=== PATIENT | male | born 1995 | race Caucasian/White ===

== ENCOUNTER 2019-08-06 14:42 | Emergency (ER) | payer OTHER, SELFPAY ==
--- NOTE | 2019-08-06 15:26 | HMH.EDUTC ---
[facility] [place] Disposition Clinical Impression: Right otitis media Qualifiers: Otitis media type: suppurative Chronicity: acute Recurrence: non-recurrent Spontaneous tympanic membrane rupture: without spontaneous rupture Qualified Code(s): H66.001 - Acute suppurative otitis media without spontaneous rupture of ear drum, right ear Disposition: Home, Self-Care Condition on Discharge: Good Instructions: Middle Ear Infection Additional Instructions: Drink plenty of fluids. Take tylenol or ibuprofen for pain or fever. Take the medications as directed. Follow up with your regular doctor. GO TO THE ER FOR ANY WORSENING SYMPTOMS Prescriptions: predniSONE [Deltasone 10mg tablet] 10 mg PO BID 3 Days #6 tab Transmission Status: Received by [id number] Azithromycin [Z-Abisai 250mg Tab*] 250 mg PO UD DOSE PK #6 tab Transmission Status: Received by [facility] Referrals: Audra Arias PA [Primary Care Provider] - Forms: Work/School Release Time of Disposition: 15:46 Medical Decision Making - Medical Records Medical records reviewed: No: I reviewed the patient's medical records. - Gerald Inquiry Pt receiving controlled substance: No Vital Signs: 08/06/19 15:41 08/06/19 15:47 Temperature 98.0 F 98.0 F Temperature Source Oral Pulse Rate 65 Pulse Rate [Left Brachial] 65 Respiratory Rate 20 20 Blood Pressure 124/78 Blood Pressure [Left Arm] 124/78 Blood Pressure Mean [Left Arm] 93 Blood Pressure Source [Left Arm] Automatic Cuff Blood Pressure Position [Left Arm] Sitting 02 Sat by Pulse Oximetry 98 Oxygen Delivery Method Room Air [facility] [place] HPI - General Stated complaint: ear infection Time Seen by Provider: 08/06/19 15:26 - History of Present Illness Provider Complaint: He c/o right ear pain for the past 2 days. He state that he gets ear infections frequently and he feels like he has one now. - Related Data Previous Rx's Medication Instructions Recorded Azithromycin [Z-Abisai 250mg Tab*] 250 mg PO UD DOSE PK #6 tab 08/06/19 predniSONE [Deltasone 10mg tablet] 10 mg PO BID 3 Days #6 tab 08/06/19 Allergies Allergy/AdvReac Type Severity Reaction Status Date / Time Penicillins [PENICILLINS] Allergy Unknown Verified 11/08/17 08:05 [facility] History - Hepatitis A Screen Attestation statement:: This patient has been screened for Hepatitis A risk factors. I have reviewed the patient's past medical history: Yes Laterality Cases: Bilateral: Tonsillectomy - Social History Smoking Status: Current every day smoker Tobacco Type: cigarettes # Packs/Day (cigarettes): 1 Alcohol Intake: never Occupational Status: other Family Hx:: No significant family history ROS Obtained: Yes All systems reviewed & no additional complaints - Constitutional Constitutional: Denies chills, Denies fever(s) - Eyes Eyes: Denies eye discharge - ENT Ears, Nose, Mouth, and Throat: Reports as per HPI - Cardiovascular Cardiovascular: Denies chest pain - Respiratory Respiratory: No chest congestion, No cough, No dyspnea, No coughing up blood, No stridor, No wheezing Physical Exam - General General appearance: alert, in no apparent distress - Head Head exam: atraumatic, normocephalic, normal inspection - Eye Eye exam: Present: normal appearance, PERRL, EOMI - ENT ENT exam: Present: mucous membranes moist, normal external ear exam - Expanded ENT Exam TM/Canal exam: Bilateral TM: erythema, bulging, effusion Nose exam: Absent: sinus tenderness Mouth exam: Present: normal external inspection Teeth exam: Present: normal inspection Throat exam: Present: tonsillar erythema. Absent: tonsillomegaly, tonsillar exudate, R peritonsillar mass, L peritonsillar mass - Neck Neck exam: Present: normal inspection, full ROM, trachea midline. Absent: meningismus, lymphadenopathy - Chest Chest inspection: Present: normal inspection, symmetric chest wall rise. Absent: tenderness - Res
[2019-08-06 15:41] VITALS: BP 124/78; PULSE 65; RESP 20; TEMP 36.7; O2SAT 98; BMI 20.4
[2019-08-06 15:47] VITALS: BP 124/78; PULSE 65; RESP 20; TEMP 36.7; O2SAT 98
== END 2019-08-06 15:52 | disposition home or self-care (01) ==
PROVIDERS: Emergency Provider Nurse Practitioner Family; PCP Physician Assistant
DX: H66.001 Acute suppurative otitis media without spontaneous rupture of ear drum, right ear (principal); F17.210 Nicotine dependence, cigarettes, uncomplicated; Z90.09 Acquired absence of other part of head and neck
CPT/HCPCS: 99201

== ENCOUNTER → 2019-08-31 13:56 | Outpatient (CLI) | payer OTHER, SELFPAY | PROVIDERS: Visit Provider Nurse Practitioner | DX: Z02.1 Encounter for pre-employment examination (principal) ==

== ENCOUNTER 2020-09-01 19:23 | Emergency (ER) | payer OTHER, SELFPAY ==
[2020-09-01 19:51] VITALS: BP 130/85; PULSE 87; RESP 20; TEMP 36.6; O2SAT 99; BMI 18.6
--- NOTE | 2020-09-01 19:52 | ECG_ITS ---
APPROVED REPORT Exam: Resting ECG HR:78 bpm ECG Measurements Heart Rate 78 AXES ID 146 P 75 QRSd 98 QRS 92 QT 358 T 66 QTc 408 Conclusion Normal sinus rhythm Rightward axis Incomplete right bundle branch block Borderline ECG Electronically signed by : Garry Sy, 09/02/2020 18:51:39
[2020-09-01 20:01] VITALS: BP 115/75; BP 118/75; BP 129/81; PULSE 77; PULSE 89
--- NOTE | 2020-09-01 20:04 | HMH.EDUTC ---
[facility] [place] Disposition Clinical Impression: Syncope, near, Dehydration Fatigue Qualifiers: Fatigue type: unspecified Qualified Code(s): R53.83 - Other fatigue Disposition: Home, Self-Care Condition on Discharge: Good Instructions: Fainting Additional Instructions: Drink plenty of fluids. Drink gatorade or other sports drinks also. Take tylenol or ibuprofen for pain or fever. Follow up with your regular doctor. GO TO THE ER FOR ANY WORSENING SYMPTOMS Referrals: Audra Arias PA [Primary Care Provider] - Forms: Work/School Release Time of Disposition: 21:10 Medical Decision Making - Medical Records Medical records reviewed: No: I reviewed the patient's medical records. - Gerald Inquiry Pt receiving controlled substance: No Vital Signs: 09/01/20 19:51 09/01/20 20:01 09/01/20 21:02 Temperature 98 F 98 F Temperature Source Oral Pulse Rate 80 Pulse Rate [Orthostatic Lying] 77 Pulse Rate [Orthostatic Sitting] 77 Pulse Rate [Orthostatic Standing] 89 Pulse Rate [Right] 87 Respiratory Rate 20 20 Blood Pressure 119/75 Blood Pressure [Orthostatic Lying] 129/81 Blood Pressure [Orthostatic Sitting] 118/75 Blood Pressure [Orthostatic Standing] 115/75 Blood Pressure [Right Arm] 130/85 Blood Pressure Mean [Right Arm] 100 02 Sat by Pulse Oximetry 99 - Lab Data Lab Results 09/01/20 20:15: WBC 10.8, RBC 4.96, Hgb 16.2, Hct 47.2, MCV 95.1 H, MCH 32.6 H, MCHC 34.3, RDW 13.1, Plt Count 311, MPV 8.1, Neut % (Auto) 77.7, Lymph % (Auto) 15.6, [place] % (Auto) 5.7, Eos % (Auto) 0.4, Baso % (Auto) 0.6, Neut # (Auto) 8.4 H, Lymph # (Auto) 1.7, [place] # (Auto) 0.6, Eos # (Auto) 0.0, Baso # (Auto) 0.1 09/01/20 20:15: Sodium 136, Potassium 4.5, Chloride 98, Carbon Dioxide 28, Anion Gap 14.5, BUN 18, Creatinine 0.90, Estimated Creat Clear 116, Estimated GFR 102, Est GFR ( Amer) 123, Glucose 100, Calcium 9.4, Phosphorus 4.5, Magnesium 2.3 Result diagrams: 09/01/20 20:15 09/01/20 20:15 [facility] [place] HPI - General Stated complaint: weakness Time Seen by Provider: 09/01/20 20:04 Mode of Arrival: Ambulatory Source of Information: Patient Limitations: No Limitations Description of Symptoms (Recalled from Triage Doc. by RN): pt is a professional painter set, thus wearing a mask and shield. he states he started gettting really light headed today while painting. pt thinks he may just be dehydrated. no LOC. HEENT Symptoms (Recalled from RN notes): No Resp Symptoms (Recalled from RN notes): No Skin Symptoms (Recalled from RN notes): No MS Symptoms (Recalled from RN notes): No Functional Status (Recalled from RN notes): weakness and light headedness - History of Present Illness Provider Complaint: He states that he was at work earlier today when he began to feel like he was going to pass out. He was in a painting suit that covered his entire body and head. He states that he got too hot. Once he got out of the painting suit he began to feel better. He believes that he is dehydrated because he has been going thru a breakup with his and he has not been eating or drinking very much. - Related Data Previous Rx's Medication Instructions Recorded Azithromycin [Z-Abisai 250mg Tab*] 250 mg PO UD DOSE PK #6 tab 08/06/19 predniSONE [Deltasone 10mg tablet] 10 mg PO BID 3 Days #6 tab 08/06/19 Allergies Allergy/AdvReac Type Severity Reaction Status Date / Time Penicillins [PENICILLINS] Allergy Unknown Verified 11/08/17 08:05 - Worker's Comp Is this a Worker's Comp case?: No [facility] History - Hepatitis A Screen Drug use history?: No High risk sexual behaviors?: No History of sexually transmitted infection?: No Currently employed?: No Childcare worker?: No Do you have indoor plumbing?: Yes Do you have electricity?: Yes Attestation statement:: This patient has been screened for Hepatitis A risk factors. I have reviewed the patient's past medical history: Yes Laterality Cases: Bilate
[2020-09-01 20:32] LABS: Basophils # 0.1 K/mm3 (0-0.2); Basophils % 0.6 % (0.1-2.0); Eosinophils % 0.4 % (0.1-12.0); Hematocrit 47.2 % (42.0-52.0); Hemoglobin 16.2 g/dL (14.1-18.0); Lymphocytes # 1.7 K/mm3 (0.7-4.5); Lymphocytes % 15.6 % (10-50); Mean Corpuscular HGB Conc 34.3 g/dL (31.8-35.4); Mean Corpuscular Hemoglobin 32.6 pg (27.0-31.2); Mean Corpuscular Volume 95.1 fl (80-94); Mean Platelet Volume 8.1 fl (7.4-10.4); Monocytes # 0.6 K/mm3 (0.1-1.0); Monocytes % 5.7 % (1.7-9.3); Neutrophils # 8.4 K/mm3 (1.8-7.8); Neutrophils % 77.7 % (37.0-80.0); Platelet Count 311 K/mm3 (142-424); Red Blood Count 4.96 M/mm3 (4.60-6.20); Red Cell Distribution Width 13.1 % (11.5-17.5); White Blood Count 10.8 K/mm3 (4.8-10.8)
[2020-09-01 20:42] LABS: Anion Gap 14.5 mEq/L (5-15); Blood Urea Nitrogen 18 mg/dl (9-20); Calcium 9.4 mg/dl (8.4-10.2); Carbon Dioxide 28 mmol/L (22.0-30.0); Chloride 98 mmol/L (98-107); Creatinine Clearance Estimated 116 mL/min (50-200); Estimated Glomerular Filt Rate 102 ml/min (>60); GFR (African American) 123 ML/MIN (>60); Glucose 100 mg/dl (74-100); Magnesium 2.3 mg/dl (1.6-2.3); Phosphorous 4.5 mg/dl (2.5-4.5); Potassium 4.5 mmoL/L (3.5-5.1); Sodium 136 mmol/L (136-145)
[2020-09-01 21:02] VITALS: BP 119/75; PULSE 80; RESP 20; TEMP 36.6
== END 2020-09-01 21:16 | disposition home or self-care (01) ==
PROVIDERS: Emergency Provider Nurse Practitioner Family; PCP Physician Assistant
DX: R55 Syncope and collapse (principal); E86.0 Dehydration; R53.83 Other fatigue; F17.210 Nicotine dependence, cigarettes, uncomplicated; Z88.0 Allergy status to penicillin
CPT/HCPCS: 80048; 83735; 84100; 85025; 93005; 93041; 96365; 99202; G0463

== ENCOUNTER 2020-10-11 20:41 | Emergency (ER) | payer OTHER, SELFPAY ==
[2020-10-11 21:10] VITALS: BP 139/79; PULSE 70; RESP 19; TEMP 36.9; O2SAT 99; BMI 19.9
[2020-10-11 21:30] LABS: UTC Strep Screen (Rapid) Positive (Negative)
--- NOTE | 2020-10-11 21:44 | HMH.EDUTC ---
[facility] [place] Clinical Impression: Strep throat Disposition: Home, Self-Care Condition on Discharge: Good Instructions: DI for Strep Throat, Strep Throat Additional Instructions: *Monitor Temp, Over the counter Motrin or Tylenol as directed/as needed Tylenol every 4 hours and Motrin every 6 hours (as long as your family doctor has told you that you can take it) for fever or pain. and straight to ER if unable to lower temp less than 101.0 after medication given *Warm salt water gargles may help to soothe the throat *Throat Lozenges *Warm fluids like tea with honey may help to soothe the throat *Sleep elevated *Humidifier/Vaporizer *If you did not take Penicillin shot or was unable to, start taking antibiotic immediately and make sure that you take it for the FULL length of time although you should start to feel better in 24-48 hours *change toothbrush and toothpaste 24-48 hours after starting to take antibiotics so you do not reinfect yourself Monitor Temp. Tylenol and/or Ibuprofen as needed. ER if fever is no less than 101 despite alternating Tylenol and Ibuprofen * Encourage fluids, water, Gatorade, powerade, pedialyte if infant/toddler/or child *Cold fluids, popsicles and ice cream may feel good on his throat Follow up IMMEDIATELY for new or worsening symptoms or no Noticeable improvement over the next 48-72 hours. 911 for difficulty breathing or swallowing Prescriptions: Cefdinir [Omnicef 300mg Capsule] 300 mg PO BID #20 cap Transmission Status: Pending to [id number] Referrals: Audra Arias PA [Primary Care Provider] - As needed Forms: Work/School Release Time of Disposition: 21:51 Medical Decision Making - Gerald Inquiry Pt receiving controlled substance: No Gerald was queried for this patient: No Vital Signs: 10/11/20 21:10 Temperature 98.5 F Temperature Source Oral Pulse Rate [Right Brachial] 70 Respiratory Rate 19 Blood Pressure [Right Arm] 139/79 Blood Pressure Mean [Right Arm] 99 Blood Pressure Source [Right Arm] Automatic Cuff Blood Pressure Position [Right Arm] Sitting 02 Sat by Pulse Oximetry 99 Oxygen Delivery Method Room Air - Lab Data Lab results reviewed: Yes: I reviewed the patient's lab results. Lab Results 10/11/20 21:15: Strep Scn Rapid Clinic Positive A Medical Decision Narrative: Patient state that he is allergic to PCN but has taken Cefdinir in the past without reaction or complication [facility] [place] - General Stated complaint: sore throat, nausea, headache Time Seen by Provider: 10/11/20 21:44 Mode of Arrival: Ambulatory Source of Information: Patient Limitations: No Limitations Description of Symptoms (Recalled from Triage Doc. by RN): PATIENT C/O BLISTERS IN THROAT, NAUSEA AND HEADACHE SINCE THIS MORNING HEENT Symptoms (Recalled from RN notes): Yes Resp Symptoms (Recalled from RN notes): No Skin Symptoms (Recalled from RN notes): No MS Symptoms (Recalled from RN notes): No Functional Status (Recalled from RN notes): WNL - History of Present Illness Provider Complaint: Patient state that he feels like he may have strep throat States that he has been having headache, body aches, sore throat with blisters in the back of his throat States that tonight he was still not feeling any better so he came in to get checked - Related Data Previous Rx's Medication Instructions Recorded Cefdinir [Omnicef 300mg Capsule] 300 mg PO BID #20 cap 10/11/20 Allergies Allergy/AdvReac Type Severity Reaction Status Date / Time Penicillins [PENICILLINS] Allergy Unknown Verified 09/16/20 12:19 - Worker's Comp Is this a Worker's Comp case?: No [facility] History - Hepatitis A Screen Drug use history?: No High risk sexual behaviors?: No History of sexually transmitted infection?: No Currently employed?: No Childcare worker?: No Do you have indoor plumbing?: Yes Do you have electricity?: Yes Attestation statement:: This patient has been scre
[2020-10-11 21:51] VITALS: BP 139/79; PULSE 70; RESP 19; TEMP 36.9; O2SAT 99
== END 2020-10-11 22:02 | disposition home or self-care (01) ==
PROVIDERS: Emergency Provider Nurse Practitioner; PCP Physician Assistant
DX: J02.0 Streptococcal pharyngitis (principal); F17.210 Nicotine dependence, cigarettes, uncomplicated
CPT/HCPCS: 87880; 99202; G0463

== ENCOUNTER 2021-01-15 13:53 | Emergency (ER) | payer OTHER, SELFPAY ==
[2021-01-15] VITALS (9 sets, daily range): BP systolic 116–130; BP diastolic 32–80; PULSE 61–85; RESP 16; TEMP 36.6; O2SAT 97–99; BMI 21.7
[2021-01-15 14:41] LABS: Basophils # 0.1 K/mm3 (0-0.2); Basophils % 0.8 % (0.1-2.0); Eosinophils # 0.1 K/mm3 (0.0-0.4); Eosinophils % 0.8 % (0.1-12.0); Hematocrit 48.9 % (42.0-52.0); Hemoglobin 17.1 g/dL (14.1-18.0); Lymphocytes % 19.1 % (10-50); Mean Corpuscular Hemoglobin 33.7 pg (27.0-31.2); Mean Corpuscular Volume 96.4 fl (80-94); Mean Platelet Volume 8.9 fl (7.4-10.4); Monocytes # 0.7 K/mm3 (0.1-1.0); Neutrophils # 7.4 K/mm3 (1.8-7.8); Neutrophils % 72.3 % (37.0-80.0); Platelet Count 313 K/mm3 (142-424); Red Blood Count 5.08 M/mm3 (4.60-6.20); Red Cell Distribution Width 12.9 % (11.5-17.5); White Blood Count 10.2 K/mm3 (4.8-10.8)
[2021-01-15 14:45] LABS: Chloride 101 mmol/L (98-107); Sodium 140 mmol/L (136-145)
[2021-01-15 14:48] LABS: Alanine Aminotransferase 18 U/L (12-78); Albumin Level 4.7 g/dl (3.5-5.0); Albumin/Globulin Ratio 1.7 (1.1-1.8); Alkaline Phosphatase 41 U/L (38-126); Aspartate Amino Transferase 26 U/L (17-59); Bilirubin,Total 0.4 mg/dl (0.2-1.3); Blood Urea Nitrogen 11 mg/dl (9-20); Calcium 9.5 mg/dl (8.4-10.2); Carbon Dioxide 27 mmol/L (22.0-30.0); Creatinine Clearance Estimated 148 mL/min (50-200); Estimated Glomerular Filt Rate 117 ml/min (>60); GFR (African American) 141 ML/MIN (>60); Globulin 2.7 g/dL (1.3-3.2); Glucose 109 mg/dl (74-100); Total Protein,Serum 7.4 g/dl (6.3-8.2)
--- NOTE | 2021-01-15 16:27 | HMH.EDGENADL ---
ED Disposition Clinical Impression: Epigastric pain Hematemesis Qualifiers: Nausea presence: with nausea Qualified Code(s): K92.0 - Hematemesis Disposition: Home, Self-Care Condition on Discharge: Good Instructions: DI for Gastrointestinal Bleeding, DI for Abdominal Pain-Adult Additional Instructions: Protonix as prescribed. Avoid alcohol. Avoid aspirin. Avoid ibuprofen. Follow-up with your primary care doctor. Call tomorrow to make appointment. Return to the emergency department if worsening abdominal pain, vomiting of blood returns, fever. Prescriptions: Pantoprazole Sodium [Protonix 40mg tablet] 40 mg PO DAILY #15 tab Transmission Status: Pending to [id number] Referrals: Audra Arias PA [Primary Care Provider] - - Critical Care Critical Care Time: No Attestation: On 01/15/21, the high probability of a clinically significant, sudden or life threatening deterioration of the following system(s) required my full and direct attention, intervention and personal management. The time I documented below is in addition to time spent performing reported procedures but includes the following listed in this critical care notation. Medical Decision Making - Gerald Inquiry Pt receiving controlled substance: No Vital Signs: 01/15/21 14:34 Pulse Rate [Right] 85 Respiratory Rate 16 Blood Pressure [Right Arm] 120/61 Blood Pressure Mean [Right Arm] 80 02 Sat by Pulse Oximetry 97 - Lab Data Lab Results 01/15/21 14:30: WBC 10.2, RBC 5.08, Hgb 17.1, Hct 48.9, MCV 96.4 H, MCH 33.7 H, MCHC 35.0, RDW 12.9, Plt Count 313, MPV 8.9, Neut % (Auto) 72.3, Lymph % (Auto) 19.1, [place] % (Auto) 7.0, Eos % (Auto) 0.8, Baso % (Auto) 0.8, Neut # (Auto) 7.4, Lymph # (Auto) 2.0, [place] # (Auto) 0.7, Eos # (Auto) 0.1, Baso # (Auto) 0.1 01/15/21 14:30: Sodium 140, Potassium 4.0, Chloride 101, Carbon Dioxide 27, Anion Gap 16.0 H, BUN 11, Creatinine 0.80, Estimated Creat Clear 148, Estimated GFR 117, Est GFR ( Amer) 141, Glucose 109 H, Calcium 9.5, Total Bilirubin 0.4, AST 26, ALT 18, Alkaline Phosphatase 41, Total Protein 7.4, Albumin 4.7, Globulin 2.7, Albumin/Globulin Ratio 1.7 Result diagrams: 01/15/21 14:30 01/15/21 14:30 Medical Decision Narrative: Symptoms suggest most likely M[place]ning[place] tear, however also could represent peptic ulcer disease or gastritis. CBC and chemistry profile ordered by nursing triage. I discussed doing further work-up with the patient. I recommended rectal exam, CT scan abdomen, I would also add pancreatic enzymes. He refuses any further work-up. Refuses rectal exam and CT scan of abdomen. I discussed treatment. He does want a PPI and says he will follow up with his primary care provider. He appears stable and I feel he can be discharged for outpatient follow-up. General Adult HPI - General Chief complaint: Nausea/Vomiting/Diarrhea Stated complaint: vomiting blood Time Seen by Provider: 01/15/21 16:27 Mode of Arrival: Ambulatory Limitations: No Limitations Description of Symptoms (Recalled from ER Triage Doc. by RN): pt states he woke up this am and has been having n/v and epigasteric pain. pt reports that he has had multiple episodes of bright red vomitus that appears to be blood. pt states the pain feels like someone hit him with a baseball bat 06/04. pt is tender no distension noted. - History of Present Illness HPI narrative: Patient says that this morning he developed epigastric pain. He vomited and then vomited a second time. The first time was just stomach contents, the second time he says was pure blood. This sequence repeated 3 more times, vomiting stomach contents followed by a second episode of vomiting of straight blood. Currently not nauseated. Currently he says he just feels hungry and feels like there is a discomfort in his epigastric area like he was punched. No diarrhea. No fever. No melena or hematochezia. No history of similar symptom
== END 2021-01-15 16:56 | disposition home or self-care (01) ==
PROVIDERS: Emergency Provider Emergency Medicine; PCP Physician Assistant
DX: R10.13 Epigastric pain (principal); K92.0 Hematemesis; F17.210 Nicotine dependence, cigarettes, uncomplicated
CPT/HCPCS: 80053; 85025; 96374; 99282

== ENCOUNTER → 2021-09-18 23:00 | Outpatient (CLI) | payer OTHER, SELFPAY ==
[2021-09-18 23:16] LABS: Influenza A, PCR Not Detected (NotDetected); Influenza B, PCR Not Detected (NotDetected)
[2021-09-18 23:47] LABS: Coronavirus 19, PCR Detected (NotDetected)
== END ==
PROVIDERS: PCP Physician Assistant; Visit Provider Emergency Medicine
DX: U07.1 COVID-19 (principal)
CPT/HCPCS: C9803; U0003; U0005

== ENCOUNTER 2021-11-13 10:00 | Emergency (ER) | payer OTHER, SELFPAY ==
[2021-11-13 10:27] VITALS: BP 127/69; PULSE 85; RESP 18; TEMP 37; O2SAT 97; BMI 21.2
--- NOTE | 2021-11-13 10:37 | EXP.UTC ---
Discharge Plan Disposition Patient Disposition: Home, Self-Care Condition: Good Prescriptions Prescriptions: New ondansetron 4 mg tablet,disintegrating 4 mg PO Q8H PRN (Reason: Nausea) Qty: 20 0RF Referrals Follow up/Referrals: Audra Arias PA [Primary Care Provider] - See instructions Activity Restrictions/Add. Instructions Additional Instructions/Restrictions: Drink extra fluids with and between meals. If you have difficulty drinking, try very small amounts of water or suck on ice chips. ? Avoid fruit juices, as these do not replace minerals and can actually increase diarrhea. ? Children and adults can use sports drinks to replenish electrolytes. Younger children and infants should use products formulated for children, like oral rehydration solutions. ? Eat food in small amounts and let your stomach recover. ? Get lots of rest. You may feel tired or weak. ? No greasy or fried foods for the next 24-48 hours BRAT diet Bananas Rice Apples and [place] ? Make sure to drink plenty of liquids ? Return if needed ? Straight to ER if any life threatening symptoms ? Zofran as prescribed ? Follow up with family doctor in the next 48-72 hours if no improvement or any worsening of symptoms Clinical Impressions Clinical Impression: Nausea and vomiting Stand Alone Forms Stand Alone Forms: Work/School Release Instructions Patient Instructions: Nausea and Vomiting-Adult, Ondansetron Discharge ED Provider: Rosanne Sena [facility] General Stated complaint: nausea, cold sweats, vomiting Mode of Arrival: Ambulatory Source of Information: Patient Limitations: No Limitations Time Seen by Provider: 11/13/21 10:37 Description of Symptoms (Recalled from Triage Doc. by RN): pt comes in with c/o nausea, vomitting, cold sweats. symptoms began this am. HEENT Symptoms (Recalled from RN notes): No Resp Symptoms (Recalled from RN notes): No Skin Symptoms (Recalled from RN notes): No MS Symptoms (Recalled from RN notes): No Functional Status (Recalled from RN notes): n/a History of Present Illness Provider Complaint: Patient states that he started having nausea this morning and felt like he was having cold sweats States that he then started vomiting and vomited several times States that he is still having nausea but worried that he may have COVID so he came in Related Data Previous Rx's Medication Instructions Recorded ondansetron 4 mg disintegrating 4 mg PO Q8H PRN Nausea #20 tabs 11/13/21 tablet Allergies Allergy/AdvReac Type Severity Reaction Status Date / Time Penicillins [PENICILLINS] Allergy Unknown Verified 11/13/21 10:31 Worker's Comp Is this a Worker's Comp case?: No PFSH PFSH Social History Smoking Status: Current every day smoker tobacco type: cigarettes packs per day: 1 alcohol intake: never current occupational status: employed Travel in the last 8 weeks: None ROS Obtained: Yes All systems reviewed & no additional complaints except as documented and Yes Systems reviewed as appropriate & no additional complaints except as documented Constitutional Constitutional: Reports system reviewed and no additional complaints, except as documented, Reports as per HPI, Reports chills and Reports other (cold sweats on and off) ENT Ears, Nose, Mouth, and Throat: Reports system reviewed and no additional complaints, except as documented and Reports as per HPI Cardiovascular Cardiovascular: Reports system reviewed and no additional complaints, except as documented and Reports as per HPI Respiratory Respiratory: Reports system reviewed and no additional complaints, except as documented and Reports as per HPI Gastrointestinal Gastrointestingal: Reports system reviewed and no additional complaints, except as documented, as per HPI, nausea and vomiting Physical Exam General General appearance: alert and in no apparent distress ENT
[2021-11-13 10:55] VITALS: BP 127/69; PULSE 85; RESP 18; TEMP 37
== END 2021-11-13 10:55 | disposition home or self-care (01) ==
PROVIDERS: Emergency Provider Nurse Practitioner; PCP Physician Assistant
DX: R11.2 Nausea with vomiting, unspecified (principal); R61 Generalized hyperhidrosis; Z20.822 Contact with and (suspected) exposure to COVID-19; F17.210 Nicotine dependence, cigarettes, uncomplicated; Z79.899 Other long term (current) drug therapy; Z88.0 Allergy status to penicillin
CPT/HCPCS: 99213; C9803; G0463; U0003; U0005

== ENCOUNTER 2022-01-09 09:00 | Emergency (ER) | payer OTHER, SELFPAY ==
--- NOTE | 2022-01-09 09:46 | EXP.UTC ---
Discharge Plan Disposition Patient Disposition: Home, Self-Care Condition: Good Prescriptions Prescriptions: New azithromycin [Zithromax] 250 mg tablet 250 mg PO UD DOSE PK Qty: 6 0RF Rx Instructions: Take two (2) tablets today, then one (1) tablet days #2 thru #5 benzonatate [benzonatate] 100 mg capsule 100 mg PO TIDP PRN (Reason: Cough) Qty: 30 0RF ondansetron 4 mg Tablet,Disintegrating 4 mg PO Q8H PRN (Reason: Nausea) Qty: 12 0RF No Action ondansetron 4 mg tablet,disintegrating 4 mg PO Q8H PRN (Reason: Nausea) Qty: 20 0RF Referrals Follow up/Referrals: Audra Arias PA [Primary Care Provider] - See instructions Activity Restrictions/Add. Instructions Additional Instructions/Restrictions: Drink plenty of fluids. Take tylenol or ibuprofen for pain or fever. Take the medications as directed. Follow up with your regular doctor. GO TO THE ER FOR ANY WORSENING SYMPTOMS Clinical Impressions Clinical Impression: Acute viral syndrome, Pharyngitis Stand Alone Forms Stand Alone Forms: Work/School Release Discharge ED Provider: Roderick Mandujano [facility] General Stated complaint: Sore throat, fever Time Seen by Provider: 01/09/22 09:46 History of Present Illness Provider Complaint: He states that for the past 1 day he has had chills, low grade fever, scratchy sore throat and he has felt bad. Related Data Previous Rx's Medication Instructions Recorded ondansetron 4 mg disintegrating 4 mg PO Q8H PRN Nausea #20 tabs 11/13/21 tablet azithromycin 250 mg tablet 250 mg PO UD DOSE PK #6 tabs 01/09/22 (Zithromax) benzonatate 100 mg capsule 100 mg PO TIDP PRN Cough #30 caps 01/09/22 ondansetron 4 mg disintegrating 4 mg PO Q8H PRN Nausea #12 tabs 01/09/22 tablet Allergies Allergy/AdvReac Type Severity Reaction Status Date / Time Penicillins [PENICILLINS] Allergy Unknown Verified 01/09/22 10:21 PFSH PFSH Social History Smoking Status: Current every day smoker tobacco type: cigarettes packs per day: 1 alcohol intake: never current occupational status: employed Travel in the last 8 weeks: None ROS Obtained: Yes All systems reviewed & no additional complaints except as documented Constitutional Constitutional: Reports chills and Reports fever(s) Eyes Eyes: Denies eye discharge ENT Ears, Nose, Mouth, and Throat: Reports as per HPI Cardiovascular Cardiovascular: Denies chest pain Respiratory Respiratory: Denies chest congestion and Reports cough Gastrointestinal Gastrointestingal: Reports nausea; Denies abdominal pain, constipation, cramping, diarrhea or vomiting Musculoskeletal Musculoskeletal: Denies arthralgias Integumentary/Breasts Skin/Breast: Denies rash Neurologic Neurologic: Denies paresthesias Physical Exam General General appearance: alert and in no apparent distress Head Head exam: atraumatic, normocephalic and normal inspection Eye Eye exam: Present normal appearance, PERRL and EOMI ENT ENT exam: Present normal exam, normal oropharynx, mucous membranes moist, TM's normal bilaterally and normal external ear exam Neck Neck exam: Present normal inspection, full ROM and trachea midline; Absent meningismus or lymphadenopathy Chest Chest inspection: Present normal inspection and symmetric chest wall rise; Absent tenderness Respiratory Respiratory exam: Present normal lung sounds bilaterally; Absent respiratory distress Cardiovascular Cardiovascular exam: Present regular rate and normal rhythm; Absent JVD Abdominal Exam Abdominal exam: Present soft and normal bowel sounds; Absent distention, tenderness or guarding Extremities Exam Extremities exam: Present normal inspection, full ROM and normal capillary refill; Absent calf tenderness Back Exam Back exam: Present normal inspection; Absent tenderness Neurological Exam Neurological exam: Present alert and oriented X3 Psychiatric Psychi
[2022-01-09 10:04] VITALS: BP 122/54; PULSE 66; RESP 18; TEMP 37; O2SAT 98; BMI 21.2
[2022-01-09 10:13] LABS: UTC Strep Screen (Rapid) Negative (Negative)
[2022-01-09 10:14] LABS: UTC Influenza A Antigen Negative (Negative); UTC Influenza B Antigen Negative (Negative)
[2022-01-09 10:23] VITALS: BP 122/54; PULSE 66; RESP 18; TEMP 37
[2022-01-09 10:28] LABS: Adenovirus,PCR Not Detected (NotDetected); Bordetella Pertussis Not Detected (NotDetected); Chlamydophila Pneumoniae, PCR Not Detected (NotDetected); Coronavirus 19, PCR Not Detected (NotDetected); Coronavirus 229E Not Detected (NotDetected); Coronavirus NL63 Not Detected (NotDetected); Coronavirus OC43 Not Detected (NotDetected); Coronovirus HKU1,PCR Not Detected (NotDetected); Human Metapneumovirus Not Detected (NotDetected); Influenza A, PCR Not Detected (NotDetected); Influenza AH1, 2009 Not Detected (NotDetected); Influenza AH1, PCR Not Detected (NotDetected); Influenza AH3,PCR Not Detected (NotDetected); Influenza B, PCR Not Detected (NotDetected); Mycoplasma Pneumoniae, PCR Not Detected (NotDetected); Parainfluenza 1, PCR Not Detected (NotDetected); Parainfluenza 2, PCR Not Detected (NotDetected); Parainfluenza 3, PCR Not Detected (NotDetected); Parainfluenza 4, PCR Not Detected (NotDetected); Respiratory Syncytial Virus Not Detected (NotDetected)
[2022-01-09 12:39] LABS: Rhinovirus/Enterovirus Detected (NotDetected)
== END 2022-01-09 10:31 | disposition home or self-care (01) ==
PROVIDERS: Emergency Provider Nurse Practitioner Family; PCP Physician Assistant
DX: J02.9 Acute pharyngitis, unspecified (principal); B34.8 Other viral infections of unspecified site
CPT/HCPCS: 87581; 87632; 87798; 87804; 87880; 99212; C9803; G0463; U0003; U0005

== ENCOUNTER 2023-01-02 08:55 | Emergency (ER) | payer SELFPAY ==
--- NOTE | 2023-01-02 09:29 | EXP.UTC ---
Discharge Plan Disposition Patient Disposition: Home, Self-Care Condition: Good Prescriptions Prescriptions: New azithromycin [Zithromax] 250 mg tablet 250 mg PO UD DOSE PK Qty: 6 0RF Rx Instructions: Take two (2) tablets today, then one (1) tablet days #2 thru #5 methylprednisolone 4 mg Tablets,Dose Pack 4 mg PO DIRECTED Qty: 21 0RF lweesfjqqekczqg-hqateafmk-HH [Bromfed DM] 2-30-10 mg/5 mL Syrup 5 ml PO Q6H PRN (Reason: Cough) Qty: 240 0RF Referrals Follow up/Referrals: Audra Arias PA [Primary Care Provider] - See instructions Activity Restrictions/Add. Instructions Additional Instructions/Restrictions: Drink plenty of fluids. Take tylenol or ibuprofen for pain or fever. Take the medications as directed. Follow up with your regular doctor. GO TO THE ER FOR ANY WORSENING SYMPTOMS Clinical Impressions Clinical Impression: Pharyngitis Stand Alone Forms Stand Alone Forms: Work/School Release Instructions Patient Instructions: Sore Throat, DI for Pharyngitis/Tonsillopharyngitis -- Adult Discharge ED Provider: Roderick Mandujano [facility] [place] HPI General Stated complaint: chest congestion, cough, body aches, fever Time Seen by Provider: 01/02/23 09:29 History of Present Illness Provider Complaint: He states that for the past 3 days he has had sore throat, chills, and malaise. He has been exposed to strep throat. Related Data Previous Rx's Medication Instructions Recorded azithromycin 250 mg tablet 250 mg PO UD DOSE PK #6 tabs 01/02/23 (Zithromax) rzddebzhpojfhzw-lepbnobijpztwhd-ZG 5 ml PO Q6H PRN Cough #240 mL 01/02/23 2 mg-30 mg-10 mg/5 mL oral syrup (Bromfed DM) methylprednisolone 4 mg tablets in 4 mg PO DIRECTED #21 tabs 01/02/23 a dose pack Allergies Allergy/AdvReac Type Severity Reaction Status Date / Time Penicillins [PENICILLINS] Allergy Unknown Verified 01/02/23 09:45 [facility] Disclaimer: The information contained in this section may have been updated after the patient was seen, as this information can be updated by other users. Social History Smoking Status: Current every day smoker tobacco type: cigarettes packs per day: 1 alcohol intake: never current occupational status: employed Travel in the last 8 weeks: None ROS Obtained: Yes All systems reviewed & no additional complaints except as documented Constitutional Constitutional: Reports chills and Reports fever(s) Eyes Eyes: Denies eye discharge ENT Ears, Nose, Mouth, and Throat: Reports as per HPI Cardiovascular Cardiovascular: Denies chest pain Respiratory Respiratory: Denies chest congestion and Reports cough Gastrointestinal Gastrointestingal: Reports nausea; Denies abdominal pain, constipation, cramping, diarrhea or vomiting Musculoskeletal Musculoskeletal: Denies arthralgias Integumentary/Breasts Skin/Breast: Denies rash Neurologic Neurologic: Denies paresthesias Physical Exam General General appearance: alert and in no apparent distress Head Head exam: atraumatic, normocephalic and normal inspection Eye Eye exam: Present normal appearance, PERRL and EOMI ENT ENT exam: Present mucous membranes moist and normal external ear exam Expanded ENT Exam TM/Canal exam: Bilateral TM: erythema and bulging Nose exam: Absent sinus tenderness Mouth exam: Present normal external inspection; Absent drooling Teeth exam: Present normal inspection Throat exam: Present tonsillar erythema, tonsillomegaly and tonsillar exudate Neck Neck exam: Present normal inspection, full ROM and trachea midline; Absent tenderness, meningismus or lymphadenopathy Chest Chest inspection: Present normal inspection and symmetric chest wall rise; Absent tenderness Respiratory Respiratory exam: Present normal lung sounds bilaterally; Absent respiratory distress, wheezes or stridor Cardiovascular Cardiovascular exam: Present regular rate and normal rh
[2023-01-02 09:30] VITALS: BP 199/80; PULSE 64; RESP 18; TEMP 36.9; O2SAT 98; BMI 20.5
[2023-01-02 09:52] LABS: UTC Strep Screen (Rapid) Negative (Negative)
[2023-01-02 09:54] LABS: UTC Influenza A Antigen Negative (Negative); UTC Influenza B Antigen Negative (Negative)
[2023-01-02 10:30] VITALS: BP 119/80; PULSE 64; RESP 18; TEMP 36.9; O2SAT 98
== END 2023-01-02 10:15 | disposition home or self-care (01) ==
PROVIDERS: Emergency Provider Nurse Practitioner Family; PCP Physician Assistant
DX: J02.9 Acute pharyngitis, unspecified (principal); R53.81 Other malaise; F17.210 Nicotine dependence, cigarettes, uncomplicated; Z20.828 Contact with and (suspected) exposure to other viral communicable diseases
CPT/HCPCS: 87804; 87880; 99212; 99214; G0463

== ENCOUNTER 2023-04-18 13:12 | Emergency (ER) | payer SELFPAY ==
[2023-04-18 14:00] VITALS: BP 119/86; PULSE 83; RESP 21; TEMP 37.4; O2SAT 99; BMI 26.6
[2023-04-18 14:16] LABS: UTC Influenza A Antigen Negative (Negative); UTC Influenza B Antigen Positive (Negative)
[2023-04-18 14:23] VITALS: BP 119/86; PULSE 83; RESP 21; TEMP 37.4; O2SAT 99
--- NOTE | 2023-04-18 14:36 | ED_ITS ---
Discharge Plan Disposition Patient Disposition: Home, Self-Care Condition: Good Prescriptions Prescriptions: New oseltamivir [Tamiflu] 75 mg capsule 75 mg PO Q12H 5 Days Qty: 10 0RF aarehjtinlhzqul-nykkfwwai-UW [Bromfed DM] 2-30-10 mg/5 mL syrup 10 ml PO Q6H PRN (Reason: cold symptoms) Qty: 200 0RF Referrals Follow up/Referrals: Audra Arias PA [Primary Care Provider] - See instructions Activity Restrictions/Add. Instructions Additional Instructions/Restrictions: * Start Tamiflu today if you are going to take it. Discussed risk and possible benefits. * Lots of rest * Increase Fluids water, Gatorade, powerade, pedialyte,if infant/toddler/child * Alternate Tylenol and / or ibuprofen as discussed for fever, aches, chills Follow up IMMEDIATELY with your family doctor for new or worsening Symptoms OR no noticeable improvement over the next 48-72 hours, 911 for difficulty or breathing * You or your child area contagious until no fever, aches, chills for 24 hours with medication for symptoms * Help Prevent the spread of influenza: * ?Wash your hands often. Use soap and water. Wash your hands after you use the bathroom, change a child's diapers, or sneeze. Wash your hands before you prepare or eat food. Use gel hand cleanser that has 60% alcohol, when soap and water are not available. Do not touch your eyes, nose, or mouth unless you have washed your hands first. * Cover your mouth when you sneeze or cough. Cough into a tissue or the bend of your arm. If you use a tissue, throw it away immediately and wash your hands. * Clean shared items with a germ-killing harness cleaner. Clean table surfaces, doorknobs, and light switches. Do not share towels, silverware, and dishes with people who are sick. Wash bed sheets, towels, silverware, and dishes with soap and water. * Wear a mask over your mouth and nose if you are sick. The face mask may help protect others from becoming infected with the flu. Wear the mask when in common areas of your home or if you seek care with a healthcare provider. * Stay away from others if you are sick. Stay at home until 24 hours after your fever and symptoms are gone. Clinical Impressions Clinical Impression: Influenza Stand Alone Forms Stand Alone Forms: Work/School Release Instructions Patient Instructions: DI for Influenza -- Adult, Influenza Discharge ED [place] [facility] [place] General Stated complaint: headache,sob Mode of Arrival: Ambulatory Source of Information: Patient Limitations: No Limitations Time Seen by Provider: 04/18/23 14:36 Description of Symptoms (Recalled from Triage Doc. by RN): PATIENT C/O HEADACHE, RUNNY NOSE, DIZZINESS, SOA, EYES WATERING, FEVER, AND CHILLS X 2 DAYS HEENT Symptoms (Recalled from RN notes): Yes Resp Symptoms (Recalled from RN notes): No Skin Symptoms (Recalled from RN notes): No MS Symptoms (Recalled from RN notes): No Functional Status (Recalled from RN notes): WNL History of Present Illness Provider Complaint: Patient states that for the last couple of days he has been having nasal congestion, pain and pressure in both ears, feeling of weakness, dizziness and short of breath here and there States that he feels like he has the flu his family has had it so he came in to get checked Related Data Previous Rx's Medication Instructions Recorded cgqrkrxliargzgs-peziiyyyuytvqvw-GL 10 ml PO Q6H PRN cold symptoms 04/18/23 2 mg-30 mg-10 mg/5 mL oral syrup #200 mL (Bromfed DM) oseltamivir 75 mg capsule (Tamiflu) 75 mg PO Q12H 5 days #10 caps 04/18/23 Allergies Allergy/AdvReac Type Severity Reaction Status Date / Time Penicillins [PENICILLINS] Allergy Unknown Verified 01/02/23 09:45 Worker's Comp Is this a Worker's Comp case?: No [facility] Disclaimer: The information contained in this section may have been updated after the patient was seen, as this information can be updated by other users. Surgical History (Updated 04/18/23 @ 14:12 by Renuka Arriola RN) History of tonsillectomy Social History Smoking Status: Current every day smoker tobacco type: cigarettes packs per day: 1 alcohol intake: never current occupational status: employed Travel in the last 8 weeks: None ROS Obtained: Yes All systems reviewed & no additional complaints except as documented and Yes Systems reviewed as appropriate & no additional complaints except as documented Constitutional Constitutional: Reports system reviewed and no additional complaints, except as documented, Reports as per HPI, Reports body ache, Reports chills, Reports fatigue, Reports fever(s) and Reports headache(s) Eyes Eyes: Reports system reviewed and no additional complaints, except as documented and Reports as per HPI ENT Ears, Nose, Mouth, and Throat: Reports system reviewed and no additional complaints, except as documented, Reports as per HPI, Reports dizziness, Reports otalgia, Reports headache(s) and Reports nasal congestion Cardiovascular Cardiovascular: Reports system reviewed and no additional complaints, except as documented and Reports as per HPI Respiratory Respiratory: Reports system reviewed and no additional complaints, except as documented, Reports as per HPI, Reports shortness of breath (at times) and Reports cough Gastrointestinal Gastrointestingal: Reports system reviewed and no additional complaints, except as documented and as per HPI Neurologic Neurologic: Reports dizziness and Reports headache(s) Endocrine Endocrine: Reports fatigue Physical Exam General General appearance: alert and in no apparent distress ENT ENT exam: Present mucous membranes moist and TM's normal bilaterally Respiratory Respiratory exam: Present normal lung sounds bilaterally; Absent respiratory distress or wheezes Cardiovascular Cardiovascular exam: Present regular rate, normal rhythm and normal heart sounds Neurological Exam Neurological exam: Present alert, oriented X3 and normal gait Medical Decision Making Gerald Inquiry Pt receiving controlled substance: No Gerald was queried for this patient: No Vital Signs: 04/18/23 14:00 04/18/23 14:23 Temperature 99.3 F 99.3 F Temperature Source Oral Pulse Rate 83 Pulse Rate [Left Brachial] 83 Respiratory Rate 21 21 Blood Pressure 119/86 Blood Pressure [Left Arm] 119/86 Blood Pressure Mean [Left Arm] 97 Blood Pressure Source [Left Arm] Automatic Cuff Blood Pressure Position [Left Arm] Sitting 02 Sat by Pulse Oximetry 99 Oxygen Delivery Method Room Air Lab Data Lab results reviewed: Yes I reviewed the patient's lab results. Lab Results 04/18/23 14:02: Influenza Type A Ag Negative, Influenza Type B Ag Positive A
== END 2023-04-18 14:56 | disposition home or self-care (01) ==
PROVIDERS: Emergency Provider Nurse Practitioner; PCP Physician Assistant
DX: J10.1 Influenza due to other identified influenza virus with other respiratory manifestations (principal); R05.9 Cough, unspecified; R06.02 Shortness of breath; H92.03 Otalgia, bilateral; R09.81 Nasal congestion; R42 Dizziness and giddiness; F17.210 Nicotine dependence, cigarettes, uncomplicated
CPT/HCPCS: 87804; 99212; 99214; G0463

== ENCOUNTER 2024-05-25 03:02 | Emergency (ER) | payer BC, SELFPAY ==
[2024-05-25 03:10] VITALS: BP 137/84; PULSE 64; RESP 16; TEMP 37.2; O2SAT 99; BMI 21.8
--- NOTE | 2024-05-25 03:10 | ECG_ITS ---
APPROVED REPORT Exam: Resting ECG HR:58 bpm ECG Measurements Heart Rate 58 AXES IA 131 P 31 QRSd 107 QRS 104 QT 373 T 71 QTc 370 Conclusion SINUS BRADYCARDIA RIGHT AXIS DEVIATION [QRS AXIS > 100] INCOMPLETE RIGHT BUNDLE BRANCH BLOCK [90+ ms QRS DURATION, TERMINAL R IN V1/V2, 40+ ms S IN I/aVL/V4/V5/V6] No STEMI Electronically signed by : EB GONZALEZ, 05/25/2024 06:45:23
--- NOTE | 2024-05-25 03:11 | CT_ITS ---
PROCEDURE INFORMATION: Exam: CT Abdomen And Pelvis With Contrast Exam date and time: 05/25/2024 3:31 AM Age: 29 years old Clinical indication: Abdominal pain; Additional info: L abd pain radiating into chest TECHNIQUE: Imaging protocol: Computed tomography of the abdomen and pelvis with contrast. 3D rendering (Not supervised by radiologist): MIP and/or 3D reconstructed images were created by the technologist. Radiation optimization: All CT scans at this facility use at least one of these dose optimization techniques: automated exposure control; mA and/or kV adjustment per patient size (includes targeted exams where dose is matched to clinical indication); or iterative reconstruction. Contrast material: ISOVUE; Contrast volume: 70 ml; Contrast route: IV; COMPARISON: SPLUMBWO CT lumbar spine wo con 11/08/2017 8:46 AM FINDINGS: Liver: The liver has an unremarkable appearance. Gallbladder and biliary ducts: Gasllbladder decompressed. No calcified stones. No ductal dilation. Pancreas: Pancreas appears homogeneous and unremarkable. No ductal dilation. Spleen: Splenic parenchymal calcifications. No splenomegaly. Adrenal glands: Adrenal glands are normal. Kidneys and ureters: No nephrolithiasis. No hydronephrosis. Stomach and bowel: Unremarkable. No bowel obstruction. No mucosal thickening. Appendix: Appendix well visualized. No evidence of appendicitis. Intraperitoneal space: No free air. No significant fluid collection. Vasculature: No abdominal aortic aneurysm. Two left renal arteries. Circumaortic left renal veins. Lymph nodes: No enlarged lymph nodes. Urinary bladder: Bladder thin-walled and unremarkable as visualized. Reproductive: Unremarkable as visualized. Bones/joints: No acute fracture. Soft tissues: Unremarkable. IMPRESSION: No acute findings.
--- NOTE | 2024-05-25 03:11 | XR_ITS ---
PROCEDURE INFORMATION: Exam: XR Chest Exam date and time: 05/25/2024 3:44 AM Age: 29 years old Clinical indication: Pain; Left-sided; Additional info: L chest pain radiating from abd TECHNIQUE: Imaging protocol: Radiologic exam of the chest. Views: 1 view. COMPARISON: CT ANGIO CHEST PE PROTOCOL 05/25/2024 3:31 AM FINDINGS: Lungs: Unremarkable. No consolidation. Pleural spaces: Unremarkable. No pleural effusion. No pneumothorax. Heart/Mediastinum: Unremarkable. No cardiomegaly. Bones/joints: Unremarkable. IMPRESSION: No acute findings.
--- NOTE | 2024-05-25 03:12 | CT_ITS ---
PROCEDURE INFORMATION: Exam: CTA Chest With Contrast Exam date and time: 05/25/2024 3:31 AM Age: 29 years old Clinical indication: Pain; Left-sided; Additional info: L cp that radiates from L abdomen, pleuritic TECHNIQUE: Imaging protocol: Computed tomographic angiography of the chest with contrast. Exam focused on the arteries. 3D rendering (Not supervised by radiologist): MIP and/or 3D reconstructed images were created by the technologist. Radiation optimization: All CT scans at this facility use at least one of these dose optimization techniques: automated exposure control; mA and/or kV adjustment per patient size (includes targeted exams where dose is matched to clinical indication); or iterative reconstruction. Contrast material: ISOUVE 370; Contrast volume: 70 ml; Contrast route: INTRAVENOUS (IV); COMPARISON: [facility] CT thoracic spine wo con 11/08/2017 8:43 AM FINDINGS: Pulmonary arteries: There is no evidence of peripheral filling defects within the pulmonary arterial circulation to suggest pulmonary embolism. Aorta: The thoracic aorta is unremarkable. No stenosis or vessel wall calcification. No aneurysm or dissection. Three-vessel arch. Lungs: Dependent atelectasis. No lobar consolidation. Round, noncalcified 4.7 mm right lower lobe juxta fissural nodule on image 5/43. 3.7 mm left upper lobe pulmonary nodule on image 5/71. They may be granulomata. Pleural spaces: There are no pleural effusions present. Heart: The heart is not enlarged. Coronary artery calcification is not observed. No significant pericardial fluid. Lymph nodes: No enlarged lymph nodes. Spleen: Splenic parenchymal calcifications. Bones/joints: No acute fracture. No concerning osseous lesion. Soft tissues: Unremarkable. IMPRESSION: 1. Non acute findings. 2. Subcentimeter pulmonary nodularity. If the patient does not have known cancer, follow up should be based on clinical information because of the low risk of cancer in this age group. (Reference: Johny) REFERENCES: Johny H, et al. Guidelines for Management of Incidental Pulmonary Nodules Detected on CT Images: From the Fleischner Society 2017. Radiology. 2017;284(1):228-243.
--- NOTE | 2024-05-25 03:22 | HMH.EDGENADL ---
Discharge Plan Disposition Patient Disposition: Home, Self-Care Condition: Good Prescriptions Prescriptions: No Action No Known Home Medications Referrals Follow up/Referrals: Audra Arias PA [Primary Care Provider] - See instructions bD Greenwood MD [Staff Physician] - See instructions (L chest pain, benign ER workup) Activity Restrictions/Add. Instructions Additional Instructions/Restrictions: You were evaluated in the ER and are appropriate for discharge at this time. Take Tylenol and ibuprofen as needed for pain, do not exceed the recommended dose on the bottle. Drink water and eat a small snack each time you take these medications to avoid side effects. Make an appointment with your primary care doctor for reevaluation. Have them reevaluate the nodules in your lungs. You have also been referred to cardiology for outpatient reevaluation of your heart. Make an appointment with them soon as possible. I recommend decreasing your caffeine intake to protect your heart. Return to the ER with any new, worsening, or otherwise concerning symptoms Clinical Impressions Clinical Impression: Chest pain, Abdominal pain, Incidental lung nodule Instructions Patient Instructions: DI for Acute Abdominal Pain Print Language Print Language: Bengali Discharge ED Provider: Loni Atkins General Adult HPI General Chief complaint: Abdominal Pain Stated complaint: pain in left side abd and left shoulder Time Seen by Provider: 05/25/24 03:11 Mode of Arrival: Ambulatory Source of Information: Patient and Significant Other Description of Symptoms (Recalled from ER Triage Doc. by RN): pt presents with c/o left sided abd pain that radaites up into his chest/collar bone that began approx 2 days ago. Pt denies any trauma, pt reports pain worse with inspiration and coughing. History of Present Illness HPI narrative: 29-year-old male presents to the ER with abdominal pain and chest pain. Patient reports Saturday, 3 days ago, he developed left-sided abdominal pain. He thought maybe he pulled a muscle. He reports the next day he noticed the pain was radiating from the left side of the abdomen and up the left side of the chest into the shoulder. He states it is worse with deep breathing or coughing. He has not had a recent respiratory illness. He vapes but does not smoke and states he has not been able to vape for the last few days because has been too painful to take a deep breath. He reports the most comfortable position for him is sitting but leaning part way back, he is uncomfortable both totally upright or laying flat. He reports no traumatic injuries. He reports no numbness, tingling, or weakness. He states he has had nausea but no vomiting. He reports he had an ear infection go to his lymph nodes a few weeks ago but has otherwise been well. No known cardiac history. He admits that he drinks 3-4 venom energy drinks a day. No dizziness, numbness, tingling, weakness, or other associated symptoms. Related Data Home Medications ?Medication ?Instructions ?Recorded ?Confirmed No Known Home Medications 05/25/24 05/25/24 Allergies Allergy/AdvReac Type Severity Reaction Status Date / Time Penicillins (PENICILLINS) Allergy Unknown Verified 04/30/24 10:26 [facility] Disclaimer: The information contained in this section may have been updated after the patient was seen, as this information can be updated by other users. Medical History (Updated 05/25/24 @ 04:59 by Loni Atkins MD) Otitis externa Otitis media Surgical History History of tonsillectomy Social History Smoking Status: Current every day smoker tobacco type: cigarettes packs per day: 1 alcohol intake: never current occupational status: employed Travel in the last 8 weeks: None Have you lived/traveled outside [place] in past 30 days?: No Contact w/someone who lives/traveled outside [place] past 30 days?: No Exposure to someone with infectious disease in past 14 days?: No Do you have a fever (greater than 100.4 F or 38 C)?: No Have you tested positive for COVID-19: No Exposed to someone with COVID-19 in past 14 days?: No Do you have a sore throat?: No Do you have a cough?: No Do you have any weakness?: No Do you have any diarrhea?: No Are you experiencing any unusual bleeding?: No Do you have any muscle aches/pain?: No Do you have any abdominal pain?: Yes Are you experiencing loss of taste or smell?: No Other Medical History Have you received the Flu Vaccine for this season: No Have you received the Pneumonia Vaccine: No ROS Obtained: Yes Systems reviewed as appropriate & no additional complaints except as documented per HPI Physical Exam General General appearance: alert and in no apparent distress Head Head exam: atraumatic and normocephalic Eye Eye exam: Present PERRL and EOMI ENT ENT exam: Present mucous membranes moist Neck Neck exam: Present normal inspection and full ROM Chest Chest inspection: Present symmetric chest wall rise; Absent tenderness (Patient actually reports improvement of symptoms with palpation of the left upper chest) Respiratory Respiratory exam: Present normal lung sounds bilaterally; Absent respiratory distress, wheezes or stridor Cardiovascular Cardiovascular exam: Present regular rate and normal rhythm Abdominal Exam Abdominal exam: Present soft; Absent distention or tenderness Extremities Exam Extremities exam: Present full ROM Neurological Exam Neurological exam: Present alert and oriented X3; Absent motor sensory deficit Psychiatric Psychiatric exam: Present normal affect and normal mood Skin Skin exam: Present warm and dry Medical Decision Making Medical Records Medical records reviewed: Yes I reviewed the patient's medical records. Screening: Per USPSTF and CDC recommendations, given the prevalence of disease in our region, it is our hospital?s policy to screen for HIV and viral Hepatitis for all patients aged 18 and over and those with ongoing risk factors. MR Comment: Patient was seen in early April diagnosed with otitis externa. Patient prescribed Ciprodex, methylprednisolone, cefdinir, fluticasone at that encounter Gerald Inquiry Pt receiving controlled substance: No Vital Signs: 05/25/24 03:10 Temperature 98.9 F Temperature Source Oral Pulse Rate [Radial] 64 Respiratory Rate 16 Blood Pressure [Right Arm] 137/84 Blood Pressure Mean [Right Arm] 101 Blood Pressure Position [Right Arm] Sitting 02 Sat by Pulse Oximetry 99 Oxygen Delivery Method Room Air Lab Data Lab Results 05/25/24 03:17: WBC 9.6, RBC 4.45 L, Hgb 14.5, Hct 41.8 L, MCV 93.9, MCH 32.6 H, MCHC 34.7, RDW 11.7, Plt Count 286, MPV 10.1, Neut % (Auto) 55.1, Lymph % (Auto) 31.1, Lawrence % (Auto) 11.6 H, Eos % (Auto) 1.8, Baso % (Auto) 0.2, Neut # (Auto) 5.3, Lymph # (Auto) 3.0, Lawrence # (Auto) 1.1 H, Eos # (Auto) 0.2, Baso # (Auto) 0.0, Sodium 140, Potassium 3.9, Chloride 102, Carbon Dioxide 31 H, Anion Gap 10.9, BUN 10, Creatinine 0.80, Estimated Creat Clear 147, Estimated GFR 114, Est GFR ( Amer) 137, Glucose 105 H, Lactate 0.6 L, Calcium 9.1, Total Bilirubin 0.2, AST 22, ALT 15, Alkaline Phosphatase 45, Troponin I < 0.01, C-Reactive Protein 6.6 H, Total Protein 6.9, Albumin 4.5, Globulin 2.4, Albumin/Globulin Ratio 1.9 H, Lipase 55, HCV Ab LIZBETH w/Rflx PCR Qn Negative, Monoscreen Negative, HIV Ag/Ab Combo Qual Negative 05/25/24 03:17 05/25/24 03:17 Orders (Tests/Meds): ED MEDICATIONS Generic Name Dose Route Start Last Admin Trade Name Freq PRN Reason Stop Dose Admin Sodium Chloride 10 ml 05/25/24 03:42 Sodium Chloride 0.9% 10ml Syr (Rad Only) IV 06/24/24 03:41 NEEDED PRN Maintain IV Site Discontinued Medications Generic Name Dose Route Start Last Admin Trade Name Freq PRN Reason Stop Dose Admin Iopamidol 70 ml 05/25/24 03:42 Iopamidol-370 (76%);100ml Bottle IV 05/25/24 03:43 ONCE ONE Ketorolac Tromethamine 30 mg 05/25/24 04:34 05/25/24 04:43 Ketorolac 30mg/Ml Vial IV 05/25/24 04:35 30 mg ONCE ONE Administration Sodium Chloride 40 ml 05/25/24 03:42 0.9 % Sodium Chloride 50 Ml Vial IV 05/25/24 03:43 ONCE ONE ORDERS Category Date Time Status CT abdomen pelvis w con Stat Cat Scan 05/25/24 03:[address] angio chest PE protocol Stat Cat Scan 05/25/24 03:12 Completed CXR --portable [XR chest portable] Stat Exams 05/25/24 03:11 Completed POCUS Point of Care (ER Only) Stat Exams 05/25/24 04:34 Ordered CBC w/Auto Diff [Complete Blood Count Auto Diff] Stat Lab 05/25/24 03:17 Completed CMP [Comprehensive Metabolic Panel] Stat Lab 05/25/24 03:17 Completed CRP [C-Reactive Protein] Stat Lab 05/25/24 03:17 Completed HIV Combo Stat Lab 05/25/24 03:17 Completed Hepatitis C Ab Qual. W/ RFX Stat Lab 05/25/24 03:17 Completed Lactic Acid Stat Lab 05/25/24 03:17 Completed Lipase Stat Lab 05/25/24 03:17 Completed Monoscreen (Rapid) Stat Lab 05/25/24 03:17 Completed Trop I [Troponin I] Stat Lab 05/25/24 03:17 Completed Troponin I Q3H Lab 05/25/24 06:15 Ordered Troponin I Q3H Lab 05/25/24 09:15 Ordered Medical Decision Narrative: In summary, this 29-year-old male presents to the emergency department today with left-sided abdominal pain radiating up through the anterior left chest to the left shoulder. On initial evaluation patient is hemodynamically stable, afebrile, GCS 15, independently ambulatory into the ER, exam is overall benign and patient actually reports improvement of symptoms with palpation of the left upper chest. Differential diagnosis includes but is not limited to ACS, pneumothorax, PE, viral syndrome, pneumonia, pericarditis, splenomegaly, esophageal spasm, muscle spasm, among others. Based on these concerns, I ordered serum labs, cardiac workup, CT imaging. ECG personally interpreted demonstrates sinus bradycardia, rate 58, right axis deviation, normal AR and QTc, no STEMI. Labs personally reviewed demonstrate no leukocytosis or anemia, platelets normal, CMP unremarkable, nonactionable, lactate normal, troponin undetectably low less than 0.01 which is significantly reassuring in the setting of patient's unremarkable ECG and his duration of symptoms. I do not believe serial troponin is indicated at this time. Lipase normal at 55 reassuring against pancreatitis. Monoscreen negative. XR personally interpreted demonstrates no acute intrathoracic abnormality, see radiology read for final interpretation. CT imaging personally interpreted demonstrate no PE, no lobar infiltrate. See radiology read which does comment on subcentimeter pulmonary nodularity. Patient was informed of this incidental finding and instructed to follow-up with PCP for reevaluation. CT abdomen pelvis personally interpreted does not demonstrate acute intra-abdominal pathology, see radiology read for final interpretation I performed point of care ultrasound at bedside and personally interpreted it demonstrating no pericardial effusion or other acute abnormality. See procedure note for details CRP only slightly elevated at 6.6 On reassessment patient is stable and resting comfortably. I believe he is appropriate for discharge at this time. With his positional pain, I have highest suspicion for musculoskeletal etiology. It is possible that he has mild pericarditis however patient has no pericardial effusion and CRP is barely elevated and he has undetectable troponin. I instructed him on NSAID and [id number] medication use for symptom management. He has been referred to cardiology for outpatient follow-up. He was instructed on PCP follow-up including to follow-up regarding lung nodules. Patient was given instructions on symptomatic management, follow up instructions, and return precautions for the emergency department. Patient indicated understanding and was discharged in stable condition. Procedures Miscellaneous Procedure Procedure Performed: Limited Cardiac Ultrasound Indication: Chest pain Identified cardiac views: [-Cardiac subxiphoid] Parasternal long and short axis as well as apical four-chamber were not able to be obtained secondary to patient's very thin body habitus and poor anatomic windows Findings: Cardiac activity present with no gross wall motion abnormality, no pericardial effusion, no right heart strain Impression: Cardiac activity present with no gross wall motion abnormality, no pericardial effusion, no right heart strain Images were saved to permanent archive The study was technically adequate CPT: 18469 This study was performed by me, and I personally interpreted all images/videos. Based on my clinical judgement, these images were adequate and did not necessitate further imaging. Critical Care Critical Care Time Critical Care Time: No
[2024-05-25 03:24] LABS: Basophils % 0.2 % (0.1-2.0); Eosinophils # 0.2 K/mm3 (0.0-0.4); Eosinophils % 1.8 % (0.1-12.0); Hematocrit 41.8 % (42.0-52.0); Hemoglobin 14.5 g/dL (14.1-18.0); Lymphocytes % 31.1 % (10-50); Mean Corpuscular HGB Conc 34.7 g/dL (31.8-35.4); Mean Corpuscular Hemoglobin 32.6 pg (27.0-31.2); Mean Corpuscular Volume 93.9 fl (80-94); Mean Platelet Volume 10.1 fl (7.4-10.4); Monocytes # 1.1 K/mm3 (0.1-1.0); Monocytes % 11.6 % (1.7-9.3); Neutrophils # 5.3 K/mm3 (1.8-7.8); Neutrophils % 55.1 % (37.0-80.0); Platelet Count 286 K/mm3 (142-424); Red Blood Count 4.45 M/mm3 (4.60-6.20); Red Cell Distribution Width 11.7 % (11.5-17.5); White Blood Count 9.6 K/mm3 (4.8-10.8)
[2024-05-25 03:28] LABS: Monoscreen (Rapid) Negative (Negative)
[2024-05-25 03:29] LABS: Albumin Level 4.5 g/dl (3.5-5.0); Chloride 102 mmol/L (98-107); Potassium 3.9 mmoL/L (3.5-5.1); Sodium 140 mmol/L (136-145)
[2024-05-25 03:31] LABS: Lipase 55 U/L (23-300)
[2024-05-25 03:32] LABS: Alanine Aminotransferase 15 U/L (12-78); Albumin/Globulin Ratio 1.9 (1.1-1.8); Alkaline Phosphatase 45 U/L (38-126); Anion Gap 10.9 mEq/L (5-15); Aspartate Amino Transferase 22 U/L (17-59); Bilirubin,Total 0.2 mg/dl (0.2-1.3); Blood Urea Nitrogen 10 mg/dl (9-20); Calcium 9.1 mg/dl (8.4-10.2); Carbon Dioxide 31 mmol/L (22.0-30.0); Creatinine Clearance Estimated 147 mL/min (50-200); Estimated Glomerular Filt Rate 114 ml/min (>60); GFR (African American) 137 ML/MIN (>60); Globulin 2.4 g/dL (1.3-3.2); Glucose 105 mg/dl (74-100); Total Protein,Serum 6.9 g/dl (6.3-8.2)
[2024-05-25 03:39] LABS: Lactic Acid 0.6 mmol/L (0.7-2.1)
--- NOTE | 2024-05-25 03:39 | PC.NURSE ---
Pt to rad
[2024-05-25 03:53] LABS: Troponin I < 0.01 ng/ml (0.00-0.034)
[2024-05-25 04:23] LABS: HIV Combo NEGATIVE (Negative)
[2024-05-25 04:29] LABS: Hepatitis C Ab Qual. W/ RFX NEGATIVE (Negative)
[2024-05-25] MEDS: KETOROLAC 30MG/ML VIAL 30 MG IV (04:43)
[2024-05-25 04:53] LABS: C-Reactive Protein 6.6 mg/L (0-4)
[2024-05-25 05:05] VITALS: BP 128/88; PULSE 60; RESP 18; TEMP 37.2; O2SAT 100
== END 2024-05-25 05:06 | disposition home or self-care (01) ==
PROVIDERS: Emergency Provider Emergency Medicine; PCP Physician Assistant
DX: R91.1 Solitary pulmonary nodule (principal); R07.9 Chest pain, unspecified; R10.9 Unspecified abdominal pain; M25.512 Pain in left shoulder; R05.9 Cough, unspecified; R11.0 Nausea; F17.290 Nicotine dependence, other tobacco product, uncomplicated
CPT/HCPCS: 71045; 71275; 74177; 80053; 83605; 83690; 84484; 85025; 86140; 86318; 86803; 87389; 93005; 96374; 99285; J1885